=== PATIENT | female | born 1975 | race Caucasian/White ===

== ENCOUNTER 2017-02-16 08:04 | Day surgery (SDC) | payer BC ==
[~2017-02-16] VITALS: Ht 175.3 cm; Wt 63.5 kg
[2017-02-16] VITALS (11 sets, daily range): BP systolic 107–124; BP diastolic 59–79
--- NOTE | 2017-02-16 06:25 | Anethesia Preoperative Eval ---
Anesthesia Pre-op PMH/ROS General Date of Evaluation: Feb 16, 2017 Time of Evaluation: 06:23 Anesthesiologist: beverley ASA Score: ASA 3 Mallampati Score Class I : Soft palate, uvula, fauces, pillars visible Class II: Soft palate, uvula, fauces visible Class III: Soft palate, base of uvula visible Class IV: Only hard plate visible Mallampati Classification: Class II Surgeon: levi Diagnosis: breast cancer Surgical Procedure: left breast quadrantectomy Anesthesia History: none Social History: smoking - nonsmoker Family History: no anesthesia problems Allergies: Coded Allergies: SULFA (SULFONAMIDE ANTIBIOTICS) (Verified Allergy, Intermediate, mouth swollen, 02/16/17) Medications: see eMAR Past Medical History Hematology/Immune: Reports: other - cancer Anesthesia Pre-op Phys. Exam Physician Exam Last Vital Signs Date Time Temp Pulse Resp B/P (MAP) Pulse Ox O2 Delivery O2 Flow Rate FiO2 02/16/17 08:48 98.3 77 18 123/78 100 Room Air Constitutional: NAD Neurologic: CN 2-12 intact Cardiovascular: RRR Respiratory: CTA Gastrointestinal: S/NT/ND Airway Exam Mallampati Score: Class II MO: full Neck: supple TMD: 3fb ROM: full Teeth: intact Anesthesia Pre-op A/P Labs Labs Test 02/16/17 08:25 Urine HCG, Qualitative Negative Risk Assessment & Plan Assessment: asa3 Plan: general Status Change Before Surgery: No Pre-Antibiotics Drug: ancef 1 gram Given Within 1 Hr of Incision: Yes NOEL DUQUE Feb 16, 2017 06:25
--- NOTE | 2017-02-16 07:29 | Pre-Procedure Note/Attestation ---
Pre-Procedure Note/Attestation Complete Prior to Procedure Planned Procedure: left Procedure Narrative: left breast quadrantectomy with sentinel lymph node biopsy Indications for Procedure Pre-Operative Diagnosis: left breast carcinoma Attestation I attest that I discussed the nature of the procedure; its benefits; risks and complications; and alternatives (and the risks and benefits of such alternatives ), prior to the procedure, with the patient (or the patient's legal office machines sales representative). I attest that, if there was a reasonable possibility of needing a blood transfusion, the patient (or the patient's legal office machines sales representative) was given the [facility] standardized written summary, pursuant to the Chai Hickman Blood Safety Act ([place] Health and Safety Code # 1645, as amended). I attest that I re-evaluated the patient just prior to the surgery and that there has been no change in the patient's H&P, except as documented below: YUDELKA ODELL Feb 16, 2017 07:29
[2017-02-16] MEDS ORDERED: ProvayBlue 5mg/ml 10ml amp INJ ONE (08:45)
[2017-02-16] MEDS ORDERED: fentaNYL 100 mcg/2 mL IV ONE (09:00)
[2017-02-16] MEDS ORDERED: LR 1000ml ONE (09:00)
[2017-02-16] MEDS ORDERED: Sterile Water Irrig 1000ml IRRIG ONE (09:00)
[2017-02-16] MEDS ORDERED: Sodium Chloride 10ml vial INJ ONE (09:00)
[2017-02-16] MEDS ORDERED: NS Irrig 1000ml ONE (09:00)
[2017-02-16] MEDS ORDERED: Zemuron 50mg/5ml Inj IV ONE (09:00)
[2017-02-16] MEDS ORDERED: Metoclopramide 10mg/2ml Inj ONE (09:00)
[2017-02-16] MEDS ORDERED: Lidocaine 1% MPF 10mg/ml 5ml ONE (09:00)
[2017-02-16] MEDS ORDERED: Dexamethasone 4mg/ml vial ONE (09:00)
[2017-02-16] MEDS ORDERED: Propofol 200mg/20ml IV ONE (09:00)
[2017-02-16] MEDS ORDERED: Midazolam 2mg/2ml Inj ONE (09:00)
[2017-02-16] MEDS ORDERED: Bupivacaine w/Epi 0.5% 30ml Vial INJ ONE (09:01)
[2017-02-16] MEDS ORDERED: Lidocaine 1% 10mg/ml/Epi 0.005mg/ml 10ml vial ONE (09:01)
[2017-02-16] MEDS ORDERED: HERCEPTIN IV (09:04)
--- NOTE | 2017-02-16 10:34 | Brief Operative Note ---
Immediate Post Operative Note Operative Note Pre-op Diagnosis: left breast carcinoma Procedure: left breast quadrantectomy after needle localization and left axillary sentinel lymph node biopsy Post-op Diagnosis: same as pre-op Surgeon: levi Anesthesiologist: cee lebron Anesthesia: general Specimen: yes - left outer upper breast quadrant and sentinel lymph node, true anterior (superficial margin) Complications: none Condition: stable Fluids: LR Estimated Blood Loss: minimal Drains: none Implant(s) used?: No YUDELKA ODELL Feb 16, 2017 10:34
[2017-02-16] MEDS ORDERED: Tylenol #3 tab (300mg/30mg) ORAL PRN (10:45)
[2017-02-16] MEDS ORDERED: HYDROmorphone 1mg/ml Carpuject SUBQ PRN (10:45)
--- NOTE | 2017-02-16 14:11 | Immediate Post-Op Evaluation ---
Immediate Post-Op Evalulation Immediate Post-Op Evalulation Procedure: left breast quadrantectomy Date of Evaluation: Feb 16, 2017 Time of Evaluation: 11:05 IV Fluids: 900ml lr Blood Products: none Estimated Blood Loss: 5ml Blood Pressure Systolic: 129 Blood Pressure Diastolic: 59 Pulse Rate: 74 Respiratory Rate: 18 O2 Sat by Pulse Oximetry: 100 Temperature (Fahrenheit): 97.7 Pain Score (1-10): 3 Nausea: No Vomiting: No Complications none Patient Status: awake, reacts, patent Hydration Status: adequate Drug: cefazolin 1gm Given Within 1 Hr of Incision: Yes Time Given: 09:12 NOEL DUQUE Feb 16, 2017 14:11
--- NOTE | 2017-02-16 14:13 | 48 Hour Post Anesthesia Eval ---
Post Anesthesia Evaluation Procedure: left breast quadrantectomy Date of Evaluation: Feb 16, 2017 Time of Evaluation: 14:12 Blood Pressure Systolic: 124 0: 79 Pulse Rate: 76 Respiratory Rate: 18 Temperature (Fahrenheit): 97.6 O2 Sat by Pulse Oximetry: 100 Airway: patent Nausea: No Vomiting: No Pain Intensity: 3 Hydration Status: adequate Cardiopulmonary Status: stable Mental Status/LOC: patient returned to baseline Post-Anesthesia Complications: none Follow-up care needed: N/A NOEL DUQUE Feb 16, 2017 14:13
--- NOTE | 2017-02-17 18:15 | Operative Note - Dictated ---
DATE OF OPERATION: 02/16/2017 SURGEON: Bertrand Esteves M.D. RESPITE WORKER: None. ANESTHESIOLOGIST: Dr. Mendoza and Dr. Salgado. ANESTHESIA: General. 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 Postoperative Diagnosis: Left breast upper outer quadrant infiltrating ductal carcinoma. Operation: Left breast upper outer quadrantectomy with sentinel lymph node biopsy (after mammogram-guided needle localization of the mass). Findings And Indications: The patient is a 41-year-old female, who developed a left upper outer breast mass, which was noted after two miscarriages over the last year. She came to see me several weeks ago with a left upper outer breast mass, which was 2.7 cm x 2.1 x 2.3 and I advised her to undergo oncologic evaluation and she underwent several courses of chemotherapy to try to downgrade and minimize the size of the mass. This indeed happened. The mass was now 2.1 cm and we proceeded with definitive operation. I explained to the patient and the the indications, risks, benefits, possible complications, possible need for further surgery, and need for further treatment including both chemotherapy and radiation therapy. They understood and consented. The needle localization was uneventful. I reviewed the x-rays with the radiologist and proceeded with the operation and then at the end the specimen radiograph indeed revealed the clip, the mass, and nice margins around it grossly. The procedure was done uneventfully. Description Of Procedure: With the patient lying in the supine position on the operating table, under general anesthesia, the entire left breast region and axillary region was prepped and draped in usual sterile fashion with Betadine, a transverse incision was carried out in the left upper outer quadrant of the left breast. Subcutaneous tissues divided, flaps created superiorly and inferiorly, and the entire area of the guidewire was included for the resection in a triangular fashion with the base of the triangle laterally. The subcutaneous tissue and breast were removed all the way down to the pectoralis major muscle and the dissection undertaken off of the muscle removing the specimen in its entirety, with clear visible and palpable margins superiorly, inferiorly and laterally with the clip and tip of guide wire in the center of the specimen. All margins were marked. The specimen radiograph was taken in the x-ray department, which verified the completion of removal with the guidewire, the clip, and the mass centrally in the specimen with clear margins on xray. The area was thoroughly irrigated with normal saline and water, and I excised an anterior segment of the subcutaneous fat to make sure the anterior true margin was clear of tumor also (the mass was not that superficial but I wanted to make sure). At this point, the axillary lower component was dissected after having injected the patient with methylene blue preoperatively with 3 mL diluted 50%-50% with normal saline. There was no obvious methylene blue anywhere in the lower third of the axillary fibrofatty tissue, which was carefully identified through the transverse incision (I did not have to do a second incision). I then removed the entire lower segment of the axillary proper contents, they were sent to pathology, and at this point, the area was again double-checked for hemostasis, any small bleeders of lymphatics had been clipped during the excision of the sentinel lymph node area and no more bleeding was seen. The specimens were been sent to pathology. The wound was thoroughly irrigated and the breast plate was then reconstructed using #0 Vicryl [id number] interrupted sutures to approximate the edges of breast,and then subcutaneous and deeper tissues were approximated with 2-0 Vicryl suture and the skin with 4-0 Vicryl subcuticular sutures and Steri-Strips. Marcaine 0.5% with epinephrine 40 mL was injected for long-acting local anesthetic, and the skin was closed with 4-0 Vicryl subcuticular sutures and Steri-Strips. Dressing with 4x4s and Tegaderm was placed. The patient tolerated the procedure well. Estimated blood loss was less than 10 mL. Sponge and needle counts were correct. She went to the recovery room in stable condition. Bertrand Esteves M.D. DR: SUREKHA JOB#: [id number] CC: JUSTIN
== END 2017-02-16 12:20 | disposition home or self-care (01) ==
LOC: SUR 08:04
DX: D05.12 Intraductal carcinoma in situ of left breast (principal); I45.10 Unspecified right bundle-branch block; Z80.0 Family history of malignant neoplasm of digestive organs; Z88.2 Allergy status to sulfonamides
CPT/HCPCS: 19301; 38500; 81025; J0690; J1100; J2250; J2405; J2704; J2765; J3010; J7120; 94003; 94150